=== PATIENT | female | born 1970 | race Caucasian/White ===

== ENCOUNTER 2020-10-18 10:25 | Emergency (ER) | payer OTHER ==
[~2020-10-18] VITALS: Ht 167.6 cm; Wt 52.2 kg
[2020-10-18] MEDS ORDERED: OXYCODONE HCL5 MG PO (17:00)
--- NOTE | 2020-10-19 07:43 | CONS ---
[facility] [address], [place] [address] Signed DATE OF CONSULTATION: 10/18/2020 CHIEF COMPLAINT: Epigastric and right upper quadrant abdominal pain. HISTORY OF PRESENT ILLNESS: Laila is a 50-year-old female, otherwise generally healthy without a PCP. 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 At the end of December of this year, she was having epigastric and right upper quadrant abdominal pain. She describes taking Tylenol 4 times a day for 1 to 2 months prior to that admission because her upper teeth were bad from her periodontal disease. In the meantime, she has had all those teeth removed and she now has an upper denture, so she has not taken any Tylenol since then. However, she presented to [facility] in [place], [place] for evaluation. Her total bilirubin was 15.2, AST was greater 1500, ALT was 1077, alkaline phosphatase 286, and her INR was 1.2. Lactic acid was normal and a GGT was 158. The general surgeon did not feel that was surgical and asked that a GI doctor be consulted. They talked with Dr. Reynolds at [facility] in [place]. Because the lactic acid and INR were normal, he did not feel she needed transfer. She was admitted to the hospital in [place], [place] overnight. Apparently, her labs were better in the morning. She was allowed to be discharged to home. Unfortunately, she has had no followup. She has no primary care provider and then she moved back to [place], [place] because her mom has severe COPD and fell and broke her arm. 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 When her pain returned, she decided to come to the emergency room for evaluation. In our emergency room, the white count and hemoglobin are normal. Her total bilirubin is down to 2.9, AST is down a little at 1268, ALT is down to 70, alkaline phosphatase about the same at 228. Albumin is 3.0. Lipase is 55. INR is about the same at 1.3. We did not repeat the GGT. She told me she is not aware of her laboratory work in [place]. She thinks her hepatitis panel was fine, but does not know any autoimmune hepatitis panel and so forth. She is pretty certain she received hepatitis B vaccine. She does like to smoke half pack of cigarettes a day along with some marijuana. She denies methamphetamines, but was positive out in [place]. She thought that was from a republican and something in her drink. She has been hemodynamically stable here and underwent her ultrasound. Her liver is dense. The gallbladder is shrunken with a 5 mm thick wall in [place], it was 11 mm thick. There has been no stones. Common bile duct has been unremarkable. Of course, she has a positive Cadena's sign back in December as well as today. I have been asked to see her here in the emergency room by the ER physician. In the meantime, I have reviewed all her initial records from [place]. Unfortunately, I do not have any of the followup lab work or discharge summary. PAST MEDICAL HISTORY: Hepatitis in December 2019. Electronically Signed By: BRENDA VIGIL MD 10/19/20 0743 PATIENT NAME: LAILA BASSETT CONSULTATION DATE OF : 70 REPORT #: [id number] PHYSICIAN: BRENDA VIGIL MD PCP: NO PRIMARY CARE PHYSICIAN REPORT IS CONFIDENTIAL AND NOT TO BE RELEASED WITHOUT AUTHORIZATION [address] [address] Signed PAST SURGICAL HISTORY: Includes a laparoscopic bilateral tubal ligation and all her upper teeth have been removed. SOCIAL HISTORY: She smokes half-pack of cigarettes a day and likes to smoke a little marijuana. Apparently, she has been involved in meth on and off, but nothing other than maybe socially at parties and so forth. She does not drink. She has no primary care provider. 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 Of course, she drives. She has been taking care of her mother, Miriam Carson at [phone]. FAMILY HISTORY: Mom has COPD and is borderline diabetic. Dad is unremarkable and her three daughters were all healthy and born vaginally. REVIEW OF SYSTEMS: She had 10 systems reviewed and we discussed the above in detail. ALLERGIES: None. MEDICATIONS: None. PHYSICAL EXAMINATION: VITAL SIGNS: Blood pressure 116/81, her heart rate 70, respiratory rate 15, temperature is 97.6. She is 100% on room air. She is 5 feet 6 inches and 62 kg exam. GENERAL: Laila is a 50-year-old female, lying supine in her ER bed, watching TV. LUNGS: Clear to auscultation bilaterally. HEART: Regular rate and rhythm without murmur. ABDOMEN: Soft and flat, but it feels like her liver is 3 maybe even 4 fingerbreadths below the costal margin, particularly in the epigastric area, although she has a little voluntary guarding during exam. Otherwise, she is generally soft and flat, but again tender in epigastric and kind of right upper quadrant area. LABORATORY DATA: White blood cell count 5.3, hemoglobin 12, neutrophils 49, platelets 143. BUN 9, creatinine 0.56. Urinalysis; negative. INR is 1.3. Total bilirubin 2.9, AST 1268, ALT 70, alkaline phosphatase 228, albumin 3.0, lipase 55. RADIOGRAPHIC STUDIES: Ultrasound is reviewed and it shows a dense liver with a 5 mm trunk and thickened gallbladder wall. No cholelithiasis. Common bile duct is unremarkable and a positive Cadena's sign. Electronically Signed By: BRENDA VIGIL MD 10/19/20 0743 PATIENT NAME: LAILA BASSETT CONSULTATION DATE OF : 70 REPORT #: [id number] PHYSICIAN: BREDNA VIGIL MD PCP: NO PRIMARY CARE PHYSICIAN REPORT IS CONFIDENTIAL AND NOT TO BE RELEASED WITHOUT AUTHORIZATION [facility] [address], [place] [address] Signed ASSESSMENT AND PLAN: Laila is a 50-year-old female, who appears to present with medical rather than surgical hepatitis. It appears that she is having a milder presentation than she had in December of this year. I agree with the surgeon in [facility] that she needs an outpatient GI evaluation. Our closest contract sheltered workshop supervisor will be either at [place], [place] over in [facility]. I have already discussed this with Laila and I will go back and review this with her again. In the meantime, I have discussed it with our hospitalist, Dr. Dianna Baumann. He is also in agreement. At this point, I will sign off and would turn the care over to our emergency room physician. Brenda Vigil MD ALB/MODL /[id number] cc: Brenda Vigil MD Chart Filed Incomplete Copies: BRENDA VIGIL MD CHART FILED INCOMPLETE ~ Electronically Signed By: BRENDA VIGIL MD 10/19/20 0743 PATIENT NAME: LAILA BASSETT CONSULTATION DATE OF : 70 REPORT #: [id number] PHYSICIAN: BRENDA VIGIL MD PCP: NO PRIMARY CARE PHYSICIAN REPORT IS CONFIDENTIAL AND NOT TO BE RELEASED WITHOUT AUTHORIZATION
== END 2020-10-18 17:13 | disposition home or self-care (01) ==
LOC: ED 10:25
DX: K75.9 Inflammatory liver disease, unspecified (principal); R74.8 Abnormal levels of other serum enzymes; Z20.828 Contact with and (suspected) exposure to other viral communicable diseases; F17.200 Nicotine dependence, unspecified, uncomplicated
CPT/HCPCS: 76705; 80053; 81001; 83690; 85025; 85610; 96365; 96375; 99284-25; C9803; J0696; J1170; J2405; U0003

== ENCOUNTER 2021-06-23 12:55 | Emergency (ER) | payer OTHER ==
[~2021-06-23] VITALS: Ht 167.6 cm; Wt 52.2 kg
[~2021-06-23 12:55] MED LIST: OXYCODONE HCL5 MG PO
== END 2021-06-23 15:51 | disposition home or self-care (01) ==
LOC: ED 12:55
DX: M25.462 Effusion, left knee (principal); F17.200 Nicotine dependence, unspecified, uncomplicated
CPT/HCPCS: 73560; 93971; 99284-25